=== PATIENT | female | born 1960 | race Hispanic/Latino ===

== ENCOUNTER 2019-10-23 07:47 | Emergency (ER) | payer MEDICARE ==
--- NOTE | 2019-10-23 08:09 | Emergency Department Report ---
HPI - General Time Seen by Provider: 10/23/19 07:54 - HPI HPI: Room 17 The patient is a 58-year-old female presenting with a chief complaint of being overwhelmed. The patient states she came to the emergency department because she has "a lot a personal problems building up for 1 month." The patient states she fell and hurt dog at home and became "overwhelmed." Patient states she "gave up." The patient states she does not want to be awake. Patient denies any a plan or attempt at harming herself. Patient states she has had suicide attempts in the past and prior to each attempt she shaved her head. The patient states she shaved her head this evening. The patient sister called the crisis line and stated that the patient mentioned she wanted to sleep and not wake up. The patient was subsequently sent to the ED for evaluation by EMS ED Past Medical Hx - Past Medical History Hx Psychiatric Treatment: Yes (Bipolar disorder) - Surgical History Hx Cholecystectomy: Yes - Family History Family history: no significant - Social History Smoking Status: Never Smoker Substance Use Type: None ED Review of Systems ROS: Stated complaint: MH EVALUATION Other details as noted in HPI Constitutional: no symptoms reported Psychiatric: depression Physical Exam - Physical Exam Physical Exam: GEN: WD WN female lying on stretcher in NAD HEENT: NCAT, EOMI NECK: trachea midline PULM: CTA bilat. No resp distress noted CV: rrr no m/r/g ABD: s/nt/nd SKIN: no diaphoresis NEURO: GCS 15 MUSCULOSKELETAL: No evidence of acute injury ED Medical Decision Making - Lab Data Result diagrams: 10/23/19 08:13 10/23/19 08:13 Laboratory Tests 10/23/19 10/23/19 10/23/19 08:13 08:13 08:13 WBC 11.3 H RBC 4.81 Hgb 13.2 Hct 40.5 MCV 84 MCH 28 MCHC 33 RDW 13.7 Plt Count 264 Lymph % (Auto) 18.7 [place] % (Auto) 6.5 Eos % (Auto) 0.8 Baso % (Auto) 0.6 Lymph # 2.1 [place] # 0.7 Eos # 0.1 Baso # 0.1 Seg Neutrophils % 73.4 H Seg Neutrophils # 8.3 H Sodium 140 Potassium 3.5 L Chloride 98.8 Carbon Dioxide 23 Anion Gap 22 BUN 15 Creatinine 1.6 H Estimated GFR 33 BUN/Creatinine Ratio 9 Glucose 92 Calcium 9.3 Total Bilirubin < 0.20 AST 22 ALT 23 Alkaline Phosphatase 116 Total Protein 7.4 Albumin 4.1 Albumin/Globulin Ratio 1.2 Urine Color Urine Turbidity Urine pH Ur Specific [place] Urine Protein Urine Glucose (UA) Urine Ketones Urine Blood Urine Nitrite Urine Bilirubin Urine Urobilinogen Ur Leukocyte Esterase Urine WBC (Auto) Urine RBC (Auto) U Epithel Cells (Auto) Urine Bacteria (Auto) Salicylates 2.8 Urine Opiates Screen Urine Methadone Screen Acetaminophen Ur Barbiturates Screen Ur Phencyclidine Scrn Ur Amphetamines Screen U Benzodiazepines Scrn Urine Cocaine Screen U Marijuana (THC) Screen Plasma/Serum Alcohol 10/23/19 10/23/19 10/23/19 08:13 08:13 08:30 WBC RBC Hgb Hct MCV MCH MCHC RDW Plt Count Lymph % (Auto) [place] % (Auto) Eos % (Auto) Baso % (Auto) Lymph # [place] # Eos # Baso # Seg Neutrophils % Seg Neutrophils # Sodium Potassium Chloride Carbon Dioxide Anion Gap BUN Creatinine Estimated GFR BUN/Creatinine Ratio Glucose Calcium Total Bilirubin AST ALT Alkaline Phosphatase Total Protein Albumin Albumin/Globulin Ratio Urine Color Yellow Urine Turbidity Clear Urine pH 6.0 Ur Specific [place] 1.009 Urine Protein <15 mg/dl Urine Glucose (UA) Neg Urine Ketones Neg Urine Blood Neg Urine Nitrite Neg Urine Bilirubin Neg Urine Urobilinogen < 2.0 Ur Leukocyte Esterase Tr Urine WBC (Auto) 3.0 Urine RBC (Auto) 1.0 U Epithel Cells (Auto) 2.0 Urine Bacteria (Auto) 1+ Salicylates Urine Opiates Screen Urine Methadone Screen Acetaminophen < 5.0 L Ur Barbiturates Screen Ur Phencyclidine Scrn Ur Amphetamines Screen U Benzodiazepines Scrn Urine Cocaine Screen U Marijuana (THC) Screen Plasma/Serum Alcohol < 0.01 10/23/19 08:30 WBC RBC Hgb Hct MCV MCH MCHC RDW Plt Count Lymph % (Auto) [place] % (Auto) Eos % (Auto) Baso % (Auto) Lymph # [place] # Eos # Baso # Seg Neutrophils % Seg Neutrophils # Sodium Potassium Chloride Carbon Dioxide Anion Gap BUN Creatinine Estimated GFR BUN/Creatinine Ratio Glucose Calcium Total Bilirubin AST ALT Alkaline Phosphatase Total Protein Albumin Albumin/Globulin Ratio Urine Color Urine Turbidity Urine pH Ur Specific [place] Urine Protein Urine Glucose (UA) Urine Ketones Urine Blood Urine Nitrite Urine Bilirubin Urine Urobilinogen Ur Leukocyte Esterase Urine WBC (Auto) Urine RBC (Auto) U Epithel Cells (Auto) Urine Bacteria (Auto) Salicylates Urine Opiates Screen Presumptive negative Urine Methadone Screen Presumptive negative Acetaminophen Ur Barbiturates Screen Presumptive negative Ur Phencyclidine Scrn Presumptive negative Ur Amphetamines Screen Presumptive negative U Benzodiazepines Scrn Presumptive negative Urine Cocaine Screen Presumptive negative U Marijuana (THC) Screen Presumptive negative Plasma/Serum Alcohol - Differential Diagnosis Depression, adjustment disorder, suicidal ideation Critical care attestation.: If time is entered above; I have spent that time in minutes in the direct care of this critically ill patient, excluding procedure time. ED Disposition Clinical Impression: Depression Disposition: DC/TX-65 PSY HOSP/PSY UNIT Is pt being admited?: No Does the pt Need Aspirin: No Condition: Stable
[2019-10-23 08:32] LABS: Basophils # (Auto) 0.1 K/mm3 (0.0-0.1); Basophils % (Auto) 0.6 % (0.0-1.8); Eosinophils # (Auto) 0.1 K/mm3 (0.0-0.4); Eosinophils % (Auto) 0.8 % (0.0-4.3); Hematocrit 40.5 % (30.3-42.9); Hemoglobin 13.2 gm/dl (10.1-14.3); Lymphocytes # (Auto) 2.1 K/mm3 (1.2-5.4); Lymphocytes % (Auto) 18.7 % (13.4-35.0); Mean Corpuscular HGB Conc 33 % (30-34); Mean Corpuscular Volume 84 fl (79-97); Monocytes # (Auto) 0.7 K/mm3 (0.0-0.8); Monocytes % (Auto) 6.5 % (0.0-7.3); Platelet Count 264 K/mm3 (140-440); Red Blood Count 4.81 M/mm3 (3.65-5.03); Red Cell Distribution Width 13.7 % (13.2-15.2)
[2019-10-23 08:47] LABS: Bacteria,Urine 1+ /HPF (Negative); Bilirubin,Urine NEG (Negative); Blood,Urine NEG (Negative); Color,Urine Yellow (Yellow); Protein,Urine <15 mg/dL mg/dL (Negative); Urobilinogen,Urine < 2.0 mg/dL (<2.0)
[2019-10-23 08:57] LABS: Alanine Aminotransferase 23 units/L (7-56); Albumin 4.1 g/dL (3.9-5); BUN/Creatinine Ratio 9; Blood Urea Nitrogen 15 mg/dL (7-17); Calcium 9.3 mg/dL (8.4-10.2); Hemolysis Index 3
[2019-10-23 09:01] LABS: Amphetamine Screen,Urine PRESUMPTIVE NEGATIVE; Benzodiazepines Screen,Urine PRESUMPTIVE NEGATIVE; Cannabinoid Screen,Urine PRESUMPTIVE NEGATIVE; Cocaine Screen,Urine PRESUMPTIVE NEGATIVE; Methadone Screen,Urine PRESUMPTIVE NEGATIVE; Opiate Screen,Urine PRESUMPTIVE NEGATIVE
[2019-10-23] MEDS ORDERED: clonazePAM 0.5 MG TAB PO ONE (12:25)
[2019-10-23] MEDS ORDERED: lamoTRIgine 100 MG TAB PO SCH (14:00)
[2019-10-23] MEDS ORDERED: VENLAFAXINE XR 75 MG CAP PO ONE (14:07)
[2019-10-23 20:32] VITALS: BP 171/96
[2019-10-23] MEDS ORDERED: traZODone 50 MG TAB PO SCH (22:00)
[2019-10-23] MEDS ORDERED: VENLAFAXINE XR 75 MG CAP PO SCH (22:00)
[2019-10-23] MEDS ORDERED: clonazePAM 0.5 MG TAB PO SCH (22:00)
== END 2019-10-23 20:00 | disposition home or self-care (01) ==
LOC: ED 07:47 → EEVIPCON 07:47 → ED 20:00
DX: F31.9 Bipolar disorder, unspecified (principal)
CPT/HCPCS: 36415; 80053; 80307; 80320; 81001; 85025; 99284; G0480

== ENCOUNTER 2019-10-23 18:26 | Inpatient (IN) | payer MEDICARE ==
[2019-10-23 20:09] LABS: Basophils % (Auto) 0.2 % (0.0-1.8); Eosinophils # (Auto) 0.1 K/mm3 (0.0-0.4); Hematocrit 39.6 % (30.3-42.9); Lymphocytes # (Auto) 1.7 K/mm3 (1.2-5.4); Mean Corpuscular HGB Conc 33 % (30-34); Mean Corpuscular Volume 85 fl (79-97); Monocytes # (Auto) 0.5 K/mm3 (0.0-0.8); Monocytes % (Auto) 6.1 % (0.0-7.3); Platelet Count 273 K/mm3 (140-440); Red Blood Count 4.67 M/mm3 (3.65-5.03); Red Cell Distribution Width 14.4 % (13.2-15.2)
[2019-10-23 20:24] LABS: Calcium 8.9 mg/dL (8.4-10.2); Chol/HDL Ratio 3.72 %
[2019-10-23] MEDS: clonazePAM 0.5 MG TAB PO SCH ×2 (22:07→22:08)
[2019-10-23] MEDS: VENLAFAXINE XR 75 MG CAP PO SCH (22:08)
[2019-10-23] MEDS: traZODone 50 MG TAB PO SCH (22:08)
[2019-10-24] MEDS: clonazePAM 0.5 MG TAB PO SCH ×3 (09:17→22:41)
[2019-10-24] MEDS: VENLAFAXINE XR 75 MG CAP PO SCH ×2 (09:17→21:57)
[2019-10-24] MEDS: PHENOL 1.4% 177 ML BOTTLE MM PRN ×3 (09:18→22:41)
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
--- NOTE | 2019-10-24 16:39 | Consultation ---
History of Present Illness - Reason for Consult Consult date: 10/24/19 Requesting physician: SAMIRA TOM Medications and Allergies Allergies Allergy/AdvReac Type Severity Reaction Status Date / Time No Known Allergies Allergy Unverified 10/23/19 10:43 Home Medications Medication Instructions Recorded Confirmed Last Taken Type Venlafaxine Xr [Effexor XR] 75 mg PO HS 10/23/19 10/24/19 Unknown History Venlafaxine Xr [Effexor XR] 150 mg PO BID 10/23/19 10/24/19 Unknown History clonazePAM 0.5 mg PO BID 10/23/19 10/24/19 10/22/19 History clonazePAM 1 mg PO HS 10/23/19 10/24/19 Unknown History lamoTRIgine [LaMICtal] 100 mg PO TID 10/23/19 10/24/19 10/22/19 History traZODone [Desyrel] 50 mg PO QHS 10/23/19 10/24/19 Unknown History Active Meds: Active Medications Clonazepam (Klonopin) 0.5 mg PO BID [facility] Last Admin: 10/24/19 09:17 Dose: 0.5 mg Documented by: Clonazepam (Klonopin) 1 mg PO [facility] Last Admin: 10/23/19 22:08 Dose: 1 mg Documented by: Phenol (Chloraseptic) 1 spray MM PRN PRN PRN Reason: Sore Throat Last Admin: 10/24/19 09:18 Dose: 1 spray Documented by: Trazodone HCl (Desyrel) 50 mg PO QHS [facility] Last Admin: 10/23/19 22:08 Dose: 50 mg Documented by: Venlafaxine HCl (Effexor Xr) 150 mg PO BID [facility] Last Admin: 10/24/19 09:17 Dose: 150 mg Documented by: Exam - Physical Exam Narrative exam: GEN: Not in acute distress, lying in bed, HEENT: Normocephalic, atraumatic, Neck: supple, No JVD Lungs: Clear to auscultation bilat, no wheeze, heart;S1 and S2 reg, no murmurs, rubs or gallop Abd:soft, non tender , non distended, normal bowel sounds Ext: No edema, no clubbing, no cyanosis Neuro: Awake,alert, oriented X 3, no focal neurological signs - Constitutional Vitals: Temp Pulse Resp BP Pulse Ox 98.2 F 86 18 134/89 97 10/24/19 07:24 10/24/19 07:24 10/24/19 07:24 10/24/19 07:24 10/24/19 07:24 Results - Labs CBC & Chem 7: 10/23/19 19:35 10/23/19 19:35 Labs: Abnormal lab results 10/23/19 10/23/19 10/23/19 Range/Units 19:35 19:35 19:35 Seg Neutrophils % 71.7 H (40.0-70.0) % BUN 18 H (7-17) mg/dL Creatinine 1.6 H (0.7-1.2) mg/dL Glucose 187 H (65-100) mg/dL POC Glucose (70-105) Hemoglobin A1c 6.3 H (4-6) % Triglycerides 154 H (2-149) mg/dL 10/23/19 Range/Units 21:08 Seg Neutrophils % (40.0-70.0) % BUN (7-17) mg/dL Creatinine (0.7-1.2) mg/dL Glucose (65-100) mg/dL POC Glucose 120 H (70-105) Hemoglobin A1c (4-6) % Triglycerides (2-149) mg/dL
[2019-10-24] MEDS: traZODone 50 MG TAB PO SCH (21:58)
--- NOTE | 2019-10-25 08:40 | Progress Note ---
Subjective Date of service: 10/25/19 Subjective Comment: The patient's medical record was reviewed and the patient's progress was discussed with the nursing staff. The nurse note states. Patient was calm and cooperative last pm. She requested something else to help her sleep but was informed there was nothing else. The patient then went to sleep and slept 7 plus hours. Will continue to monitor for safety. During my interview with the patient this morning, the patient was in bed with eyes closed easily aroused, she is alert oriented x3 able to make needs known patient maintains eye contact. The patient reported that she slept on and off last night, she reports that she is eating well she denies suicidal or homicidal ideations but states, "I feel like dying sometimes but i would not hurt myself" the patient contract for safety. She denies visual or auditory hallucinations. The patient reports that she felt more depressed last night and trying to figure out why she is so depressed. Reason for continuing inpatient treatment. depression/passive si ROS: Constitutional: Negative for weight loss ENT: Negative for stridor Respiratory: Negative for cough or hemoptysis All other systems reviewed and are negative Diagnoses: Schizoaffective Disorder MENTAL STATUS General Appearance and Behavior: age appropriate, good eye contact, cooperative with questioning and polite Cooperation: Cooperative Psychomotor Behavior: within normal limits Mood: depressed Affect and affective range: Congruent with stated mood Thought Process: Fluent/Logical and Goal-directed Thought Content: Within reality Speech: Normal volume and Regular rate and rhythm Intellectual Functioning Average Suicidal Ideation: passive Homicidal Ideation: Denies HI Impulse Control: intact Insight and Judgment: normal insight and judgment Memory: Normal Attention: Normal Orientation: alert and oriented Assessment: Major depressive disorder Treatment Plan Due to the psychiatric conditions and treatment listed in the Assessment and Plan - the patient requires continued hospitalization. Will continue inpatient treatment to allow for medication adjustment and monitoring. Will continue q15 min safety checks. Will encourage the use of environmental modifications and non-pharmacologic approaches for the management of behavioral and psychological symptoms. Medication adjustment made today; increase effexor to 75mg qhs, clonazepam 3 x daily and lacmictal 100mg TID Will continue current psych medications Monitor for medication side effects. The patient will continue on medications for physical illnesses, and Hospitalist will closely monitor these Continue intensive physical and occupational therapies. Monitor patient's mood, sleep, appetite, and behavior closely. Encourage patient to participate in individual and group therapeutic sessions on the conde. Will provide a safe and therapeutic environment for patient. Estimated length of stay 3 days Medications and Allergies Allergies Allergy/AdvReac Type Severity Reaction Status Date / Time No Known Allergies Allergy Unverified 10/23/19 10:43 Home Medications Medication Instructions Recorded Confirmed Last Taken Type Venlafaxine Xr [Effexor XR] 75 mg PO HS 10/23/19 10/24/19 Unknown History Venlafaxine Xr [Effexor XR] 150 mg PO BID 10/23/19 10/24/19 Unknown History clonazePAM 0.5 mg PO BID 10/23/19 10/24/19 10/22/19 History clonazePAM 1 mg PO HS 10/23/19 10/24/19 Unknown History lamoTRIgine [LaMICtal] 100 mg PO TID 10/23/19 10/24/19 10/22/19 History traZODone [Desyrel] 50 mg PO QHS 10/23/19 10/24/19 Unknown History Active Meds: Active Medications Clonazepam (Klonopin) 1 mg PO [facility] Last Admin: 10/24/19 21:59 Dose: 1 mg Documented by: Clonazepam (Klonopin) 0.5 mg PO BID [facility] Lamotrigine (Lamictal) 100 mg PO TID [facility] Phenol (Chloraseptic) 1 spray MM PRN PRN PRN Reason: Sore Throat Last Admin: 10/24/19 22:41 Dose: 1 spray Documented by: Trazodone HCl (Desyrel) 50 mg PO QHS [facility] Last Admin: 10/24/19 21:58 Dose: 50 mg Documented by: Venlafaxine HCl (Effexor Xr) 150 mg PO BID [facility] Last Admin: 10/24/19 21:57 Dose: 150 mg Documented by: Venlafaxine HCl (Effexor Xr) 75 mg PO [facility] Results - Results Labs/Vitals: Laboratory Last Values WBC 7.9 K/mm3 (4.5-11.0) 10/23/19 19:35 RBC 4.67 M/mm3 (3.65-5.03) 10/23/19 19:35 Hgb 13.0 gm/dl (10.1-14.3) 10/23/19 19:35 Hct 39.6 % (30.3-42.9) 10/23/19 19:35 MCV 85 fl (79-97) 10/23/19 19:35 MCH 28 pg (28-32) 10/23/19 19:35 MCHC 33 % (30-34) 10/23/19 19:35 RDW 14.4 % (13.2-15.2) 10/23/19 19:35 Plt Count 273 K/mm3 (140-440) 10/23/19 19:35 Lymph % (Auto) 21.0 % (13.4-35.0) 10/23/19 19:35 [place] % (Auto) 6.1 % (0.0-7.3) 10/23/19 19:35 Eos % (Auto) 1.0 % (0.0-4.3) 10/23/19 19:35 Baso % (Auto) 0.2 % (0.0-1.8) 10/23/19 19:35 Lymph # 1.7 K/mm3 (1.2-5.4) 10/23/19 19:35 [place] # 0.5 K/mm3 (0.0-0.8) 10/23/19 19:35 Eos # 0.1 K/mm3 (0.0-0.4) 10/23/19 19:35 Baso # 0.0 K/mm3 (0.0-0.1) 10/23/19 19:35 Seg Neutrophils % 71.7 % (40.0-70.0) H 10/23/19 19:35 Seg Neutrophils # 5.7 K/mm3 (1.8-7.7) 10/23/19 19:35 Sodium 142 mmol/L (137-145) 10/23/19 19:35 Potassium 4.1 mmol/L (3.6-5.0) 10/23/19 19:35 Chloride 102.0 mmol/L (98-107) 10/23/19 19:35 Carbon Dioxide 25 mmol/L (22-30) 10/23/19 19:35 Anion Gap 19 mmol/L 10/23/19 19:35 BUN 18 mg/dL (7-17) H 10/23/19 19:35 Creatinine 1.6 mg/dL (0.7-1.2) H 10/23/19 19:35 Estimated GFR 33 ml/min 10/23/19 19:35 BUN/Creatinine Ratio 11 % 10/23/19 19:35 Glucose 187 mg/dL (65-100) H 10/23/19 19:35 POC Glucose 122 (70-105) H 10/25/19 08:16 Hemoglobin A1c 6.3 % (4-6) H 10/23/19 19:35 Calcium 8.9 mg/dL (8.4-10.2) 10/23/19 19:35 Total Bilirubin 0.20 mg/dL (0.1-1.2) 10/23/19 19:35 AST 32 units/L (5-40) 10/23/19 19:35 ALT 24 units/L (7-56) 10/23/19 19:35 Alkaline Phosphatase 113 units/L (35-129) 10/23/19 19:35 Total Protein 7.2 g/dL (6.3-8.2) 10/23/19 19:35 Albumin 4.0 g/dL (3.9-5) 10/23/19 19:35 Albumin/Globulin Ratio 1.3 % 10/23/19 19:35 Triglycerides 154 mg/dL (2-149) H 10/23/19 19:35 Cholesterol 175 mg/dL (50-199) 10/23/19 19:35 LDL Cholesterol Direct 117 mg/dL (50-130) 10/23/19 19:35 HDL Cholesterol 47 mg/dL (40-59) 10/23/19 19:35 Cholesterol/HDL Ratio 3.72 % 10/23/19 19:35 TSH 0.503 mlU/mL (0.270-4.200) 10/23/19 19:35 Last Vital Signs Temp 98.1 F 10/24/19 22:00 Pulse 78 10/24/19 22:00 Resp 17 10/24/19 22:00 BP 147/75 10/24/19 22:00 Pulse Ox 96 10/24/19 22:00
[2019-10-25] MEDS: clonazePAM 0.5 MG TAB PO SCH ×3 (09:53→21:27)
[2019-10-25] MEDS: VENLAFAXINE XR 75 MG CAP PO SCH ×3 (09:54→21:27)
[2019-10-25] MEDS: lamoTRIgine 100 MG TAB PO SCH ×3 (12:43→20:36)
[2019-10-25] MEDS ORDERED: clonazePAM 0.5 MG TAB PO SCH (14:00)
[2019-10-25] MEDS: traZODone 50 MG TAB PO SCH (21:27)
[2019-10-26] MEDS: PHENOL 1.4% 177 ML BOTTLE MM PRN ×2 (00:29→10:47)
--- NOTE | 2019-10-26 07:29 | Progress Note ---
Subjective Date of service: 10/26/19 Subjective Comment: The patient's medical record was reviewed and the patient's progress was discussed with the nursing staff. The nurse note states. Patient was calm and cooperative last pm. She requested something else to help her sleep but was informed there was nothing else. The patient then went to sleep and slept 7 plus hours. Will continue to monitor for safety. During my interview with the patient this morning, the patient was in bed with eyes closed easily aroused, she is alert oriented x3 able to make needs known patient maintains eye contact. The patient reported that she slept on and off last night, she reports that she is eating well she denies suicidal or homicidal ideations but states, "I feel like dying sometimes but i would not hurt myself" the patient contract for safety. She denies visual or auditory hallucinations. The patient reports that she felt more depressed last night and trying to figure out why she is so depressed. Reason for continuing inpatient treatment. depression/passive si ROS: Constitutional: Negative for weight loss ENT: Negative for stridor Respiratory: Negative for cough or hemoptysis All other systems reviewed and are negative Diagnoses: Schizoaffective Disorder MENTAL STATUS General Appearance and Behavior: age appropriate, good eye contact, cooperative with questioning and polite Cooperation: Cooperative Psychomotor Behavior: within normal limits Mood: depressed Affect and affective range: Congruent with stated mood Thought Process: Fluent/Logical and Goal-directed Thought Content: Within reality Speech: Normal volume and Regular rate and rhythm Intellectual Functioning Average Suicidal Ideation: passive Homicidal Ideation: Denies HI Impulse Control: intact Insight and Judgment: normal insight and judgment Memory: Normal Attention: Normal Orientation: alert and oriented Assessment: Major depressive disorder Treatment Plan Due to the psychiatric conditions and treatment listed in the Assessment and Plan - the patient requires continued hospitalization. Will continue inpatient treatment to allow for medication adjustment and monitoring. Will continue q15 min safety checks. Will encourage the use of environmental modifications and non-pharmacologic approaches for the management of behavioral and psychological symptoms. Medication adjustment made today; increase effexor to 75mg qhs, clonazepam 3 x daily and lacmictal 100mg TID Will continue current psych medications Monitor for medication side effects. The patient will continue on medications for physical illnesses, and Hospitalist will closely monitor these Continue intensive physical and occupational therapies. Monitor patient's mood, sleep, appetite, and behavior closely. Encourage patient to participate in individual and group therapeutic sessions on the conde. Will provide a safe and therapeutic environment for patient. Estimated length of stay 3 days Medications and Allergies Allergies Allergy/AdvReac Type Severity Reaction Status Date / Time No Known Allergies Allergy Unverified 10/23/19 10:43 Home Medications Medication Instructions Recorded Confirmed Last Taken Type Venlafaxine Xr [Effexor XR] 75 mg PO HS 10/23/19 10/24/19 Unknown History Venlafaxine Xr [Effexor XR] 150 mg PO BID 10/23/19 10/24/19 Unknown History clonazePAM 0.5 mg PO BID 10/23/19 10/24/19 10/22/19 History clonazePAM 1 mg PO HS 10/23/19 10/24/19 Unknown History lamoTRIgine [LaMICtal] 100 mg PO TID 10/23/19 10/24/19 10/22/19 History traZODone [Desyrel] 50 mg PO QHS 10/23/19 10/24/19 Unknown History Active Meds: Active Medications Clonazepam (Klonopin) 1 mg PO [facility] Last Admin: 10/25/19 21:27 Dose: 1 mg Documented by: Clonazepam (Klonopin) 0.5 mg PO 1000,1400 [facility] Last Admin: 10/25/19 15:00 Dose: 0.5 mg Documented by: Lamotrigine (Lamictal) 100 mg PO TID [facility] Last Admin: 10/25/19 20:36 Dose: 100 mg Documented by: Phenol (Chloraseptic) 1 spray MM PRN PRN PRN Reason: Sore Throat Last Admin: 10/26/19 00:29 Dose: 1 spray Documented by: Trazodone HCl (Desyrel) 50 mg PO QHS [facility] Last Admin: 10/25/19 21:27 Dose: 50 mg Documented by: Venlafaxine HCl (Effexor Xr) 75 mg PO [facility] Last Admin: 10/25/19 21:27 Dose: 75 mg Documented by: Venlafaxine HCl (Effexor Xr) 150 mg PO 1000,1400 [facility] Last Admin: 10/25/19 14:54 Dose: 150 mg Documented by: Results - Results Labs/Vitals: Laboratory Last Values WBC 7.9 K/mm3 (4.5-11.0) 10/23/19 19:35 RBC 4.67 M/mm3 (3.65-5.03) 10/23/19 19:35 Hgb 13.0 gm/dl (10.1-14.3) 10/23/19 19:35 Hct 39.6 % (30.3-42.9) 10/23/19 19:35 MCV 85 fl (79-97) 10/23/19 19:35 MCH 28 pg (28-32) 10/23/19 19:35 MCHC 33 % (30-34) 10/23/19 19:35 RDW 14.4 % (13.2-15.2) 10/23/19 19:35 Plt Count 273 K/mm3 (140-440) 10/23/19 19:35 Lymph % (Auto) 21.0 % (13.4-35.0) 10/23/19 19:35 [place] % (Auto) 6.1 % (0.0-7.3) 10/23/19 19:35 Eos % (Auto) 1.0 % (0.0-4.3) 10/23/19 19:35 Baso % (Auto) 0.2 % (0.0-1.8) 10/23/19 19:35 Lymph # 1.7 K/mm3 (1.2-5.4) 10/23/19 19:35 [place] # 0.5 K/mm3 (0.0-0.8) 10/23/19 19:35 Eos # 0.1 K/mm3 (0.0-0.4) 10/23/19 19:35 Baso # 0.0 K/mm3 (0.0-0.1) 10/23/19 19:35 Seg Neutrophils % 71.7 % (40.0-70.0) H 10/23/19 19:35 Seg Neutrophils # 5.7 K/mm3 (1.8-7.7) 10/23/19 19:35 Sodium 142 mmol/L (137-145) 10/23/19 19:35 Potassium 4.1 mmol/L (3.6-5.0) 10/23/19 19:35 Chloride 102.0 mmol/L (98-107) 10/23/19 19:35 Carbon Dioxide 25 mmol/L (22-30) 10/23/19 19:35 Anion Gap 19 mmol/L 10/23/19 19:35 BUN 18 mg/dL (7-17) H 10/23/19 19:35 Creatinine 1.6 mg/dL (0.7-1.2) H 10/23/19 19:35 Estimated GFR 33 ml/min 10/23/19 19:35 BUN/Creatinine Ratio 11 % 10/23/19 19:35 Glucose 187 mg/dL (65-100) H 10/23/19 19:35 POC Glucose 104 (70-105) 10/25/19 19:44 Hemoglobin A1c 6.3 % (4-6) H 10/23/19 19:35 Calcium 8.9 mg/dL (8.4-10.2) 10/23/19 19:35 Total Bilirubin 0.20 mg/dL (0.1-1.2) 10/23/19 19:35 AST 32 units/L (5-40) 10/23/19 19:35 ALT 24 units/L (7-56) 10/23/19 19:35 Alkaline Phosphatase 113 units/L (35-129) 10/23/19 19:35 Total Protein 7.2 g/dL (6.3-8.2) 10/23/19 19:35 Albumin 4.0 g/dL (3.9-5) 10/23/19 19:35 Albumin/Globulin Ratio 1.3 % 10/23/19 19:35 Triglycerides 154 mg/dL (2-149) H 10/23/19 19:35 Cholesterol 175 mg/dL (50-199) 10/23/19 19:35 LDL Cholesterol Direct 117 mg/dL (50-130) 10/23/19 19:35 HDL Cholesterol 47 mg/dL (40-59) 10/23/19 19:35 Cholesterol/HDL Ratio 3.72 % 10/23/19 19:35 TSH 0.503 mlU/mL (0.270-4.200) 10/23/19 19:35 Last Vital Signs Temp 98.2 F 10/25/19 19:45 Pulse 79 10/25/19 19:45 Resp 18 10/25/19 19:45 BP 131/75 10/25/19 19:45 Pulse Ox 96 10/25/19 19:45
--- NOTE | 2019-10-26 09:04 | Progress Note ---
Subjective Date of service: 10/26/19 Subjective Comment: The patient's medical record was reviewed and the patient's progress was discussed with the nursing staff. The nurse note states. Pt rested w/o incident overnight. remains in bed relaxing. Denies pain. No SI reported. Calm and cooperative. Will continue to monitor. During my interview with the patient this morning, the patient was in the day room alert oriented x3, able to make her needs known dressed appropriately for the occasion maintain eye contact. The patient denies suicidal or homicidal ideations, she denies visual or auditory hallucinations. She reports that she is sleeping and eating well and states, "the medication has been helping me a lot and I am feeling and doing better". The patient reported that her depression is much better. Reason for continuing inpatient treatment. depression ROS: Constitutional: Negative for weight loss ENT: Negative for stridor Respiratory: Negative for cough or hemoptysis All other systems reviewed and are negative Diagnoses: Schizoaffective Disorder MENTAL STATUS General Appearance and Behavior: age appropriate, good eye contact, cooperative with questioning and polite Cooperation: Cooperative Psychomotor Behavior: within normal limits Mood: depressed Affect and affective range: Congruent with stated mood Thought Process: Fluent/Logical and Goal-directed Thought Content: Within reality Speech: Normal volume and Regular rate and rhythm Intellectual Functioning Average Suicidal Ideation: denies Homicidal Ideation: Denies HI Impulse Control: intact Insight and Judgment: normal insight and judgment Memory: Normal Attention: Normal Orientation: alert and oriented Assessment: Major depressive disorder Treatment Plan Due to the psychiatric conditions and treatment listed in the Assessment and Plan - the patient requires continued hospitalization. Will continue inpatient treatment to allow for medication adjustment and monitoring. Will continue q15 min safety checks. Will encourage the use of environmental modifications and non-pharmacologic approaches for the management of behavioral and psychological symptoms. Medication adjustment made today; NONE Will continue current psych medications Monitor for medication side effects. The patient will continue on medications for physical illnesses, and Hospitalist will closely monitor these Continue intensive physical and occupational therapies. Monitor patient's mood, sleep, appetite, and behavior closely. Encourage patient to participate in individual and group therapeutic sessions on the conde. Will provide a safe and therapeutic environment for patient. Estimated length of stay 2 days Medications and Allergies Allergies Allergy/AdvReac Type Severity Reaction Status Date / Time No Known Allergies Allergy Unverified 10/23/19 10:43 Home Medications Medication Instructions Recorded Confirmed Last Taken Type Venlafaxine Xr [Effexor XR] 75 mg PO HS 10/23/19 10/24/19 Unknown History Venlafaxine Xr [Effexor XR] 150 mg PO BID 10/23/19 10/24/19 Unknown History clonazePAM 0.5 mg PO BID 10/23/19 10/24/19 10/22/19 History clonazePAM 1 mg PO HS 10/23/19 10/24/19 Unknown History lamoTRIgine [LaMICtal] 100 mg PO TID 10/23/19 10/24/19 10/22/19 History traZODone [Desyrel] 50 mg PO QHS 10/23/19 10/24/19 Unknown History Active Meds: Active Medications Clonazepam (Klonopin) 1 mg PO [facility] Last Admin: 10/25/19 21:27 Dose: 1 mg Documented by: Clonazepam (Klonopin) 0.5 mg PO 1000,1400 [facility] Last Admin: 10/25/19 15:00 Dose: 0.5 mg Documented by: Lamotrigine (Lamictal) 100 mg PO TID [facility] Last Admin: 10/25/19 20:36 Dose: 100 mg Documented by: Phenol (Chloraseptic) 1 spray MM PRN PRN PRN Reason: Sore Throat Last Admin: 10/26/19 00:29 Dose: 1 spray Documented by: Trazodone HCl (Desyrel) 50 mg PO QHS [facility] Last Admin: 10/25/19 21:27 Dose: 50 mg Documented by: Venlafaxine HCl (Effexor Xr) 75 mg PO [facility] Last Admin: 10/25/19 21:27 Dose: 75 mg Documented by: Venlafaxine HCl (Effexor Xr) 150 mg PO 1000,1400 [facility] Last Admin: 10/25/19 14:54 Dose: 150 mg Documented by: Results - Results Labs/Vitals: Laboratory Last Values WBC 7.9 K/mm3 (4.5-11.0) 10/23/19 19:35 RBC 4.67 M/mm3 (3.65-5.03) 10/23/19 19:35 Hgb 13.0 gm/dl (10.1-14.3) 10/23/19 19:35 Hct 39.6 % (30.3-42.9) 10/23/19 19:35 MCV 85 fl (79-97) 10/23/19 19:35 MCH 28 pg (28-32) 10/23/19 19:35 MCHC 33 % (30-34) 10/23/19 19:35 RDW 14.4 % (13.2-15.2) 10/23/19 19:35 Plt Count 273 K/mm3 (140-440) 10/23/19 19:35 Lymph % (Auto) 21.0 % (13.4-35.0) 10/23/19 19:35 [place] % (Auto) 6.1 % (0.0-7.3) 10/23/19 19:35 Eos % (Auto) 1.0 % (0.0-4.3) 10/23/19 19:35 Baso % (Auto) 0.2 % (0.0-1.8) 10/23/19 19:35 Lymph # 1.7 K/mm3 (1.2-5.4) 10/23/19 19:35 [place] # 0.5 K/mm3 (0.0-0.8) 10/23/19 19:35 Eos # 0.1 K/mm3 (0.0-0.4) 10/23/19 19:35 Baso # 0.0 K/mm3 (0.0-0.1) 10/23/19 19:35 Seg Neutrophils % 71.7 % (40.0-70.0) H 10/23/19 19:35 Seg Neutrophils # 5.7 K/mm3 (1.8-7.7) 10/23/19 19:35 Sodium 142 mmol/L (137-145) 10/23/19 19:35 Potassium 4.1 mmol/L (3.6-5.0) 10/23/19 19:35 Chloride 102.0 mmol/L (98-107) 10/23/19 19:35 Carbon Dioxide 25 mmol/L (22-30) 10/23/19 19:35 Anion Gap 19 mmol/L 10/23/19 19:35 BUN 18 mg/dL (7-17) H 10/23/19 19:35 Creatinine 1.6 mg/dL (0.7-1.2) H 10/23/19 19:35 Estimated GFR 33 ml/min 10/23/19 19:35 BUN/Creatinine Ratio 11 % 10/23/19 19:35 Glucose 187 mg/dL (65-100) H 10/23/19 19:35 POC Glucose 117 (70-105) H 10/26/19 07:57 Hemoglobin A1c 6.3 % (4-6) H 10/23/19 19:35 Calcium 8.9 mg/dL (8.4-10.2) 10/23/19 19:35 Total Bilirubin 0.20 mg/dL (0.1-1.2) 10/23/19 19:35 AST 32 units/L (5-40) 10/23/19 19:35 ALT 24 units/L (7-56) 10/23/19 19:35 Alkaline Phosphatase 113 units/L (35-129) 10/23/19 19:35 Total Protein 7.2 g/dL (6.3-8.2) 10/23/19 19:35 Albumin 4.0 g/dL (3.9-5) 10/23/19 19:35 Albumin/Globulin Ratio 1.3 % 10/23/19 19:35 Triglycerides 154 mg/dL (2-149) H 10/23/19 19:35 Cholesterol 175 mg/dL (50-199) 10/23/19 19:35 LDL Cholesterol Direct 117 mg/dL (50-130) 10/23/19 19:35 HDL Cholesterol 47 mg/dL (40-59) 10/23/19 19:35 Cholesterol/HDL Ratio 3.72 % 10/23/19 19:35 TSH 0.503 mlU/mL (0.270-4.200) 10/23/19 19:35 Last Vital Signs Temp 98.2 F 10/25/19 19:45 Pulse 79 10/25/19 19:45 Resp 18 10/25/19 19:45 BP 131/75 10/25/19 19:45 Pulse Ox 96 10/25/19 19:45
[2019-10-26] MEDS: VENLAFAXINE XR 75 MG CAP PO SCH ×3 (10:44→21:43)
[2019-10-26] MEDS: clonazePAM 0.5 MG TAB PO SCH ×3 (10:45→21:43)
[2019-10-26] MEDS: lamoTRIgine 100 MG TAB PO SCH ×3 (10:45→21:43)
[2019-10-26] MEDS: traZODone 50 MG TAB PO SCH (21:43)
--- NOTE | 2019-10-27 08:40 | Discharge Summary ---
Providers - Providers Date of Admission: 10/23/19 19:11 Date of discharge: 10/27/19 Attending physician: SAMIRA TOM MD 10/23/19 18:36 Consult to Physician [CONS] Routine Comment: Consulting Provider: GWEN NUNES Physician Instructions: Reason For Exam: medical management of geripsych patient Primary care physician: SHOP TAILOR Hospitalization Condition: Stable Disposition: DC-01 TO HOME OR SELFCARE Allergies/Adverse Reactions: Allergies No Known Allergies Allergy (Unverified 10/23/19 10:43) Vital Signs: Last Vital Signs Temp 98.9 F 10/26/19 19:17 Pulse 83 10/26/19 19:17 Resp 18 10/26/19 19:17 BP 140/79 10/26/19 19:17 Pulse Ox 94 10/26/19 19:17 Last Lab: Laboratory Last Values WBC 7.9 K/mm3 (4.5-11.0) 10/23/19 19:35 RBC 4.67 M/mm3 (3.65-5.03) 10/23/19 19:35 Hgb 13.0 gm/dl (10.1-14.3) 10/23/19 19:35 Hct 39.6 % (30.3-42.9) 10/23/19 19:35 MCV 85 fl (79-97) 10/23/19 19:35 MCH 28 pg (28-32) 10/23/19 19:35 MCHC 33 % (30-34) 10/23/19 19:35 RDW 14.4 % (13.2-15.2) 10/23/19 19:35 Plt Count 273 K/mm3 (140-440) 10/23/19 19:35 Lymph % (Auto) 21.0 % (13.4-35.0) 10/23/19 19:35 [place] % (Auto) 6.1 % (0.0-7.3) 10/23/19 19:35 Eos % (Auto) 1.0 % (0.0-4.3) 10/23/19 19:35 Baso % (Auto) 0.2 % (0.0-1.8) 10/23/19 19:35 Lymph # 1.7 K/mm3 (1.2-5.4) 10/23/19 19:35 [place] # 0.5 K/mm3 (0.0-0.8) 10/23/19 19:35 Eos # 0.1 K/mm3 (0.0-0.4) 10/23/19 19:35 Baso # 0.0 K/mm3 (0.0-0.1) 10/23/19 19:35 Seg Neutrophils % 71.7 % (40.0-70.0) H 10/23/19 19:35 Seg Neutrophils # 5.7 K/mm3 (1.8-7.7) 10/23/19 19:35 Sodium 142 mmol/L (137-145) 10/23/19 19:35 Potassium 4.1 mmol/L (3.6-5.0) 10/23/19 19:35 Chloride 102.0 mmol/L (98-107) 10/23/19 19:35 Carbon Dioxide 25 mmol/L (22-30) 10/23/19 19:35 Anion Gap 19 mmol/L 10/23/19 19:35 BUN 18 mg/dL (7-17) H 10/23/19 19:35 Creatinine 1.6 mg/dL (0.7-1.2) H 10/23/19 19:35 Estimated GFR 33 ml/min 10/23/19 19:35 BUN/Creatinine Ratio 11 % 10/23/19 19:35 Glucose 187 mg/dL (65-100) H 10/23/19 19:35 POC Glucose 89 (70-105) 10/26/19 11:52 Hemoglobin A1c 6.3 % (4-6) H 10/23/19 19:35 Calcium 8.9 mg/dL (8.4-10.2) 10/23/19 19:35 Total Bilirubin 0.20 mg/dL (0.1-1.2) 10/23/19 19:35 AST 32 units/L (5-40) 10/23/19 19:35 ALT 24 units/L (7-56) 10/23/19 19:35 Alkaline Phosphatase 113 units/L (35-129) 10/23/19 19:35 Total Protein 7.2 g/dL (6.3-8.2) 10/23/19 19:35 Albumin 4.0 g/dL (3.9-5) 10/23/19 19:35 Albumin/Globulin Ratio 1.3 % 10/23/19 19:35 Triglycerides 154 mg/dL (2-149) H 10/23/19 19:35 Cholesterol 175 mg/dL (50-199) 10/23/19 19:35 LDL Cholesterol Direct 117 mg/dL (50-130) 10/23/19 19:35 HDL Cholesterol 47 mg/dL (40-59) 10/23/19 19:35 Cholesterol/HDL Ratio 3.72 % 10/23/19 19:35 TSH 0.503 mlU/mL (0.270-4.200) 10/23/19 19:35 Core Measure Documentation - Palliative Care Palliative Care/ Comfort Measures: Not Applicable - Core Measures Any of the following diagnoses?: none Exam - Constitutional Vitals: Temp Pulse Resp BP Pulse Ox 98.9 F 83 18 140/79 94 10/26/19 19:17 10/26/19 19:17 10/26/19 19:17 10/26/19 19:17 10/26/19 19:17 General appearance: Present: no acute distress, well-nourished - EENT Eyes: Present: PERRL, EOM intact ENT: hearing intact, clear oral mucosa - Neck Neck: Present: supple, normal ROM - Respiratory Respiratory effort: normal - Integumentary Integumentary: Present: clear, warm, dry Plan Care Plan Goals: Maintain good and stable mental health Plan of Treatment: The patient should be complaint with medications, not use drugs, and not drink alcohol. The patient understands that if suicidal, homicidal or endangering feelings arise he should seek assistance including but not limited to calling 911, the crisis hotline, and the emergency room. Follow up with outpatient psychiatry and primary doctor in 7 to 14 days Health Concerns: asthma Follow up with: PRIMARY CARE, [Primary Care Provider] - 7 Days Prescriptions: traZODone [Desyrel] 50 mg PO QHS #30 clonazePAM 1 mg PO HS #30 clonazePAM 0.5 mg PO BID #60 Venlafaxine Xr [Effexor XR] 75 mg PO HS #30 cap Venlafaxine Xr [Effexor XR] 150 mg PO BID #60 cap lamoTRIgine [LaMICtal] 100 mg PO TID #90
[2019-10-27] MEDS: lamoTRIgine 100 MG TAB PO SCH (09:07)
[2019-10-27] MEDS: clonazePAM 0.5 MG TAB PO SCH (10:14)
[2019-10-27] MEDS: VENLAFAXINE XR 75 MG CAP PO SCH (10:15)
[2019-10-27 11:21] VITALS: BP 131/58
== END 2019-10-27 12:25 | disposition home or self-care (01) | DRG 881 ==
LOC: UNDOADMIN 18:26 → 3A 18:26 → 5A 19:11
PROVIDERS: ADMIT Psychiatry & Neurology Psychiatry; ATTEND Psychiatry & Neurology Psychiatry
DX: F32.9 Major depressive disorder, single episode, unspecified (principal); F41.9 Anxiety disorder, unspecified; F43.10 Post-traumatic stress disorder, unspecified; J45.909 Unspecified asthma, uncomplicated; Z79.51 Long term (current) use of inhaled steroids
CPT/HCPCS: 36415; 80053; 80061; 82962; 83036; 84443; 85025; G0378